=== PATIENT | male | born 1950 | race Two or more races ===

== ENCOUNTER → 2017-11-14 | Outpatient (CLI) | payer OTHER ==
[~2017-11-14] MED LIST: IOHEXOL 300 MG/ML 100ML BOTTLE IJ ONE
== END | disposition home or self-care (01) ==
LOC: CT 09:13
DX: M47.892 Other spondylosis, cervical region (principal); M47.893 Other spondylosis, cervicothoracic region
CPT/HCPCS: 36415; 78306; 82565; 84520; A9503; Q9967; 74178